=== PATIENT | male | born 1995 | race Caucasian/White ===

== ENCOUNTER 2016-09-28 21:58 | Emergency (ER) | payer OTHER ==
[~2016-09-28] VITALS: Wt 79.5 kg
[2016-09-28 22:03] VITALS: Wt 79.5 kg
[2016-09-28] MEDS ORDERED: KETOROLAC 60 MG INJ IM STA (23:38)
[2016-09-29] MEDS ORDERED: DIAZEPAM 5 MG TAB PO ONE
--- NOTE | 2016-09-29 01:28 | RADRPT ---
PROCEDURE: Lumbar Spine. CLINICAL INDICATION: Back pain. TECHNIQUE: Three views of the lumbar spine. COMPARISON: None available FINDINGS: There is transitional anatomy of the lumbosacral junction with 6 non-rib bearing lumbar vertebral bola dies and left hemisacralization of L6. The lumbar lordosis is preserved without spondylolisthesis. The vertebral body heights are maintained. No acute fracture or subluxation is seen. There are no s ignificant degenerative changes. IMPRESSION: 1. No acute fracture or subluxation. 2. Transitional anatomy of the lumbosacral junction with 6 non-rib bearing lumbar vertebral bodies and left hemisacralization of L6. RPTAT: HTAR .Dante Henry MD, Date Time Electronically viewed and signed by .Dante Henry MD, on 09/29/2016 01:28 .R/
--- NOTE | 2016-09-29 01:29 | RADRPT ---
PROCEDURE: XR Sacrum and Coccyx. CLINICAL INDICATION: Pain. TECHNIQUE: Three views of the sacrum and coccyx were performed. COMPARISON: Lumbar spine x-rays performed concurrently. FINDINGS: There is transitional anatomy of the lumbosacral junction. There is normal sacral and coccygeal min eralization and alignment. No fracture or subluxation is seen. The sacroiliac joints appear normal. IMPRESSION: 1. Transitional anatomy of the lumbosacral junction, described in detail in the concurrent lumbar s pine x-ray report. 2. Normal appearance of the sacrum and coccyx. RPTAT: HTAR .Dante Henry MD, MD Date Time Electronically viewed and signed by .Dante Henry MD, on 09/29/2016 01:29 .R/
[2016-09-29] MEDS ORDERED: IBUP-1542 PO (01:33)
[2016-09-29] MEDS ORDERED: HYDR-906 PO (01:33)
[2016-09-29] MEDS ORDERED: ORPH100T PO (01:34)
--- NOTE | 2016-09-29 01:47 | ERD ---
ER Documentation Chief Complaint Date/Time DATE: 09/29/16 TIME: 01:44 Chief Complaint LOWER BACK PAIN S/P LIFTING AT WORK 07/14 HPI This is a 21-year-old male presents to the ER with lower back pain that started yesterday after he was lifting something heavy at work. Patient states that pain is sharp and shooting in nature he denies any numbness or tingling of lower extremities. He denies any urinary bowel incontinence. He denies any IV drug use. Patient tried taking Advil however it did not work. ROS 12 point review of systems was done, all negative except per HPI. Medications Home Meds Active Scripts Orphenadrine Citrate (Norflex) 100 Mg Tablet.sa, 100 MG PO BID for 7 Days, TAB.SA Prov:PARAGJAXSON Arteaga 09/29/16 Ibuprofen* (Motrin*) 600 Mg Tab, 600 MG PO Q6, #30 TAB Prov:JAXSON TUTTLE 09/29/16 Hydrocodone/Acetaminophen ([place] 5-325 Tablet) 1 Each Tablet, 1 TAB PO Q6H Y for PAIN, #20 TAB Prov:PARAGJAXSON ABAD 09/29/16 PMhx/Soc Medical and Surgical Hx: pt denies Medical Hx, pt denies Surgical Hx Hx Alcohol Use: Yes (OCCASIONAL USE) Hx Substance Use: No Hx Tobacco Use: No Smoking Status: Unknown if ever smoked Physical Exam Vitals Vital Signs Date Time Temp Pulse Resp B/P Pulse Ox O2 Delivery O2 Flow Rate FiO2 09/28/16 22:03 97.5 85 18 136/82 98 Physical Exam GENERAL: The patient is well developed and appropriate for usual state of health , in no apparent distress. NECK: C-spine is soft and supple. There is no cervical lymphadenopathy. CHEST: Clear to auscultation bilaterally. There are no rales, wheezes or rhonchi. HEART: Regular rate and rhythm. No murmurs, clicks, rubs or gallops. BACK: No midline or flank tenderness. Tender to palpation from L3-L5. Tense paraspinal muscles. Negative leg raise test. No step- offs. EXTREMITIES: Equal pulses bilaterally. There is no peripheral clubbing, cyanosis or edema. No focal swelling or erythema. Full range of motion. Grossly neurovascularly intact. NEURO: Alert and oriented. SKIN: There is no apparent rash or petechia. The skin is warm and dry. Results 24 hrs Current Medications Medications (Trade) Dose Ordered Sig/Merry Route PRN Reason Start Time Stop Time Status Last Admin Dose Admin Ketorolac Tromethamine (Toradol) 60 mg ONCE STAT IM 09/28/16 23:38 09/28/16 23:41 DC 09/29/16 00:09 Diazepam (Valium) 5 mg ONCE ONCE PO 09/29/16 00:00 09/29/16 00:01 DC 09/29/16 00:09 Procedures/MDM Differential Diagnosis includes but is not limited to back strain, vertebral fracture, epidural abscess, cauda equina, herniated disc, AAA rupture, kidney stones, UTI, pyelonephritis. This is a 21-year-old male presents to the ER with back pain after lifting something heavy at work. At this time there is no evidence of fracture dislocation on x-rays. Suspicion for infectious etiology such as epidural abscess, discitis is low. Patient is afebrile and well- appearing. Patient has full range of motion with no lower extremity weakness, I doubt cauda equina or transverse myelitis. Patient felt significantly better in the ER after medications given. He will be sent home with [place], ibuprofen, Norflex. He is to follow-up with his primary care doctor within 1-2 days return to ER sooner if symptoms worsen. My medical decision making was shared with the patient understands and agrees with plan. Departure Diagnosis: Primary Impression: Back pain Condition: Stable Patient Instructions: Back Pain (Acute Or Chronic) Additional Instructions: Call your primary care doctor TOMORROW for an appointment during the next 1-2 days.See the doctor sooner or return here if your condition worsens before your appointment time. JAXSON TUTTLE Sep 29, 2016 01:46
[2016-09-29 01:50] VITALS: BP 130/81; PULSE 74; RESP 17; TEMP 98.2
== END 2016-09-29 01:54 | disposition home or self-care (01) ==
LOC: FTE 21:58
DX: M54.5 Low back pain (principal)
CPT/HCPCS: 72100; 72220; J1885; Z7610; 96372